=== PATIENT | female | born 1930 | race Two or more races ===

== ENCOUNTER 2016-03-18 08:52 | Inpatient (IN) | payer OTHER ==
[~2016-03-18] VITALS: Ht 165.1 cm; Wt 58.5 kg
[~2016-03-18 08:52] MED LIST: AMLO10TA2 PO; ASPI-407 PO; ASPITAB87 OR; ATOR40TA52 PO; BISA-51 PO; LIS20T PO; PANT1INJ3 PO; SENNTAB OR; [UNRECOGNIZED DRUG - CODE] OR
[2016-03-18] MEDS ORDERED: MORPHINE SULF INJ 2 MG/ML SYRINGE 1ML IV ONE ×2 (09:30→12:30)
[2016-03-18] MEDS ORDERED: ONDANSETRON HCL 4 MG/2 ML VIAL IV ONE (09:30)
[2016-03-18 10:17] LABS: Basophils # (auto) 0.1 uL; Basophils % (auto) 1.7 % (0.0-2.0); Eosinophils # (auto) 0.1 uL; Eosinophils % (auto) 1.2 % (0.0-7.0); Hematocrit 39.4 % (36.0-46.0); Hemoglobin 13.1 g/dL (12.2-16.2); Lymphocytes # (auto) 1.4 uL; Lymphocytes % (auto) 19.8 % (10.0-50.0); Mean Corpuscular Hemoglobin 30.3 pg (28.0-32.0); Mean Corpuscular Hgb Conc. 33.1 g/dL (32.0-36.0); Mean Corpuscular Volume 91.6 fL (80.0-100.0); Mean Platelet Volume 7.1 fL (7.4-10.4); Monocytes # (auto) 0.5 uL; Neutrophils # (auto) 4.7 uL; Neutrophils % (auto) 70.3 % (37.0-80.0); Platelet Count (auto) 289 10^3/uL (140-450); Red Cell Distribution Width 12.4 % (11.6-16.0); White Blood Cell 6.8 10^3/uL (4.4-10.8)
[2016-03-18 10:32] LABS: Albumin 3.3 g/dL (3.4-5.0); BUN/Creatinine Ratio 17.1; Bilirubin, Total 0.5 mg/dL (0.2-1.0); Calcium 8.6 mg/dL (8.5-10.1); Magnesium 2.5 mg/dL (1.6-2.6); Potassium 4.1 mmol/L (3.5-5.1); Total Protein 6.2 g/dL (6.4-8.2)
[2016-03-18 10:37] LABS: INR 1.03 (0.9-1.15); Partial Thromboplastin Time 25.4 sec (22.64-33.71); Prothrombin Time 10.6 sec (9.37-12.3)
[2016-03-18] MEDS ORDERED: IOHEXOL 350 MG/ML 100ML IJ ONE (12:34)
[2016-03-18] MEDS ORDERED: ACETAMINOPHEN 325 MG TAB PO PRN (14:30)
[2016-03-18] MEDS ORDERED: MORPHINE SULF INJ 2 MG/ML SYRINGE 1ML IV PRN ×2 (14:30)
[2016-03-18] MEDS ORDERED: PARoxetine 20 MG TAB PO ONE (14:30)
[2016-03-18] MEDS ORDERED: ONDANSETRON HCL 4 MG/2 ML VIAL IV PRN (14:30)
[2016-03-18] MEDS ORDERED: NITROGLYCERIN 0.4 MG SL TAB SL PRN ×2 (14:30)
[2016-03-18] MEDS ORDERED: LORazepam 0.5 MG TAB PO PRN (14:30)
[2016-03-18] MEDS ORDERED: cloNIDine HCL 0.1 MG TAB PO PRN (14:30)
[2016-03-18] MEDS ORDERED: ZOLPIDEM TARTRATE 5 MG TAB PO PRN (14:30)
[2016-03-18] MEDS ORDERED: DOCUSATE SOD 100 MG CAP PO ONE (14:45)
[2016-03-18] MEDS ORDERED: ASPirin 81 mg TAB PO ONE (14:45)
[2016-03-18] MEDS ORDERED: CARVEDILOL 3.125 MG TAB PO ONE (14:45)
[2016-03-18] MEDS ORDERED: LISINOPRIL 20 MG TAB PO ONE (14:45)
[2016-03-18] MEDS ORDERED: CLOPIDOGREL BISULFATE 75 MG TAB PO ONE (14:45)
[2016-03-18 15:25] LABS: Urine Bilirubin Negative (Negative); Urine Blood Negative /uL (Negative); Urine Color Colorless (Yellow); Urine Glucose Normal (Normal); Urine Ketone Negative (Negative); Urine Nitrite Negative (Negative); Urine RBC <1 /hpf (0 - 4); Urine Squamous Epithelial Cell FEW /hpf (<5); Urine Urobilinogen Normal (Negative)
[2016-03-18 15:32] LABS: B-Type Natriuretic Peptide 46.77 pg/mL (0-100)
[2016-03-18 15:46] LABS: Temperature: 22.7 C (20.0-25.0)
[2016-03-18] MEDS: BOOST PLUS 8 ounce PO SCH (18:04)
[2016-03-18 21:00] VITALS: BP 144/74
[2016-03-18] MEDS ORDERED: ATORVASTATIN 20 MG TAB PO SCH (22:00)
[2016-03-18] MEDS: CARVEDILOL 3.125 MG TAB PO SCH (22:35)
[2016-03-18] MEDS: LISINOPRIL 20 MG TAB PO SCH (22:36)
[2016-03-18] MEDS: SODIUM CHLOR 0.9% PF (SALINE LOCK) 10ML VIAL IV SCH (22:44)
[2016-03-18 22:54] VITALS: BP 144/74
[2016-03-19 01:09] LABS: Basophils # (auto) 0.1 uL; Eosinophils # (auto) 0.1 uL; Eosinophils % (auto) 0.9 % (0.0-7.0); Lymphocytes # (auto) 1.5 uL; Lymphocytes % (auto) 20.6 % (10.0-50.0); Mean Corpuscular Hgb Conc. 32.4 g/dL (32.0-36.0); Mean Corpuscular Volume 92.8 fL (80.0-100.0); Mean Platelet Volume 7.1 fL (7.4-10.4); Monocytes # (auto) 0.4 uL; Monocytes % (auto) 5.8 % (0.0-12.0); Neutrophils # (auto) 5.4 uL; Neutrophils % (auto) 71.7 % (37.0-80.0); Platelet Count (auto) 255 10^3/uL (140-450); Red Cell Distribution Width 12.6 % (11.6-16.0); White Blood Cell 7.5 10^3/uL (4.4-10.8)
[2016-03-19 01:28] LABS: Albumin 2.8 g/dL (3.4-5.0); BUN/Creatinine Ratio 17.1; Calcium 7.4 mg/dL (8.5-10.1); Potassium 4.5 mmol/L (3.5-5.1)
[2016-03-19 01:30] LABS: Bilirubin, Total 0.4 mg/dL (0.2-1.0)
[2016-03-19] MEDS ORDERED: HYDROcodone-ACET 5/325MG TAB PO PRN (02:00)
[2016-03-19 04:51] VITALS: BP 142/73
[2016-03-19 06:06] LABS: Thyroxine (T4) 7.6 ug/dL (4.5-12.0)
[2016-03-19] MEDS: SODIUM CHLOR 0.9% PF (SALINE LOCK) 10ML VIAL IV SCH (06:15)
[2016-03-19 06:46] LABS: Basophils # (auto) 0 uL; Basophils % (auto) 0.3 % (0.0-2.0); Eosinophils # (auto) 0 uL; Eosinophils % (auto) 0.6 % (0.0-7.0); Hemoglobin 12.2 g/dL (12.2-16.2); Lymphocytes # (auto) 1.5 uL; Lymphocytes % (auto) 19.2 % (10.0-50.0); Mean Corpuscular Hemoglobin 29.6 pg (28.0-32.0); Mean Corpuscular Volume 92.8 fL (80.0-100.0); Mean Platelet Volume 7.2 fL (7.4-10.4); Monocytes # (auto) 0.4 uL; Monocytes % (auto) 5.4 % (0.0-12.0); Neutrophils # (auto) 5.6 uL; Neutrophils % (auto) 74.5 % (37.0-80.0); Platelet Count (auto) 279 10^3/uL (140-450); Red Cell Distribution Width 13.8 % (11.6-16.0); White Blood Cell 7.6 10^3/uL (4.4-10.8)
[2016-03-19 07:13] LABS: Albumin 3.1 g/dL (3.4-5.0); Bilirubin, Total 0.4 mg/dL (0.2-1.0); Calcium 8.5 mg/dL (8.5-10.1); Magnesium 2.6 mg/dL (1.6-2.6); Potassium 4.5 mmol/L (3.5-5.1)
[2016-03-19] MEDS: BOOST PLUS 8 ounce PO SCH (08:00)
[2016-03-19 08:33] VITALS: BP 127/63
[2016-03-19] MEDS: LISINOPRIL 20 MG TAB PO SCH (09:34)
[2016-03-19] MEDS: CARVEDILOL 3.125 MG TAB PO SCH (09:34)
[2016-03-19] MEDS ORDERED: CLOPIDOGREL BISULFATE 75 MG TAB PO SCH (10:00)
[2016-03-19] MEDS ORDERED: PARoxetine 20 MG TAB PO SCH (10:00)
[2016-03-19] MEDS ORDERED: DOCUSATE SOD 100 MG CAP PO SCH (10:00)
[2016-03-19] MEDS ORDERED: ASPirin 81 mg TAB PO SCH (10:00)
[2016-03-19 11:50] VITALS: BP 102/56
[2016-03-19 12:07] VITALS: BP 102/56
== END 2016-03-19 13:15 | disposition home or self-care (01) | DRG 206 ==
LOC: EDUNIT# 08:52 → EDBD 08:52 → ER 08:52 → EDUNIT# 08:53 → TELE 08:53 → TELE-WESTW 20:12
PROVIDERS: ADMIT Internal Medicine; ATTEND Internal Medicine
DX: M94.0 Chondrocostal junction syndrome [Tietze] (principal); E44.1 Mild protein-calorie malnutrition; I12.9 Hypertensive chronic kidney disease with stage 1 through stage 4 chronic kidney disease, or unspecified chronic kidney disease; N18.3 Chronic kidney disease, stage 3 (moderate); E04.2 Nontoxic multinodular goiter; Z68.21 Body mass index [BMI] 21.0-21.9, adult; Z83.3 Family history of diabetes mellitus; Z82.49 Family history of ischemic heart disease and other diseases of the circulatory system; E88.09 Other disorders of plasma-protein metabolism, not elsewhere classified; I35.2 Nonrheumatic aortic (valve) stenosis with insufficiency
CPT/HCPCS: 36415; 71010; 71275; 76536; 80053; 80061; 81001; 82962; 83735; 83880; 84443; 84484; 85025; 85379; 85610; 85730; 87086; 93005; 93306; 96374; 96375; 96376; J2405

== ENCOUNTER 2017-06-28 08:33 | Emergency (ER) | payer OTHER ==
[~2017-06-28] VITALS: Ht 162.6 cm; Wt 57.2 kg
[~2017-06-28 08:33] MED LIST changes: +AMLO10TA2; +ATEN-60; +CLON0.1T; +SIMV-8
[2017-06-28 09:29] LABS: Basophils # (auto) 0.1 uL; Basophils % (auto) 0.6 % (0.0-2.0); Eosinophils # (auto) 0.1 uL; Eosinophils % (auto) 1.1 % (0.0-7.0); Hematocrit 37.7 % (36.0-46.0); Hemoglobin 12.7 g/dL (12.2-16.2); Lymphocytes # (auto) 1.8 uL; Lymphocytes % (auto) 20.2 % (10.0-50.0); Mean Corpuscular Hemoglobin 30.5 pg (28.0-32.0); Mean Corpuscular Hgb Conc. 33.6 g/dL (32.0-36.0); Mean Corpuscular Volume 90.8 fL (80.0-100.0); Monocytes # (auto) 0.6 uL; Monocytes % (auto) 6.7 % (0.0-12.0); Neutrophils # (auto) 6.4 uL; Neutrophils % (auto) 71.4 % (37.0-80.0); Platelet Count (auto) 361 10^3/uL (140-450); Red Blood Cells 4.15 10^6/uL (4.0-5.20); Red Cell Distribution Width 14.2 % (11.8-14.3); White Blood Cell 8.9 10^3/uL (4.4-10.8)
[2017-06-28 09:45] LABS: INR 0.92 (0.9-1.15); Partial Thromboplastin Time 24.8 sec (22.64-33.71)
[2017-06-28 09:47] LABS: Albumin 3.4 g/dL (3.4-5.0); BUN/Creatinine Ratio 19.2; Calcium 8.5 mg/dL (8.5-10.1); Potassium 4.6 mmol/L (3.5-5.1)
[2017-06-28 09:50] LABS: Bilirubin, Total 0.3 mg/dL (0.2-1.0); Total Protein 6.9 g/dL (6.4-8.2)
[2017-06-28 11:44] LABS: Urine Bacteria NONE SEEN /hpf (None Seen); Urine Blood Negative /uL (Negative); Urine Specific Gravity 1.008 (1.001-1.035); Urine WBC <1 /hpf (0 - 5)
[2017-06-28 12:48] VITALS: BP 176/87
== END 2017-06-28 13:56 | disposition home or self-care (01) ==
LOC: MERGE 08:33 → ER 08:33
DX: S00.83XA Contusion of other part of head, initial encounter (principal); M47.812 Spondylosis without myelopathy or radiculopathy, cervical region; E04.9 Nontoxic goiter, unspecified; W18.39XA Other fall on same level, initial encounter; Y93.89 Activity, other specified; Y99.8 Other external cause status; Y92.098 Other place in other non-institutional residence as the place of occurrence of the external cause
CPT/HCPCS: 36415; 70450; 71046; 72125; 80053; 81001; 85025; 85610; 85730; 93005

== ENCOUNTER 2017-08-19 06:24 | Inpatient (IN) | payer OTHER ==
[~2017-08-19] VITALS: Ht 170.2 cm; Wt 58.6 kg
[2017-08-19 07:44] LABS: Basophils # (auto) 0 uL; Basophils % (auto) 0.5 % (0.0-2.0); Eosinophils # (auto) 0.2 uL; Hemoglobin 11.8 g/dL (12.2-16.2); Lymphocytes # (auto) 1.7 uL; Lymphocytes % (auto) 20.4 % (10.0-50.0); Mean Corpuscular Hemoglobin 31.2 pg (28.0-32.0); Mean Corpuscular Hgb Conc. 33.8 g/dL (32.0-36.0); Mean Corpuscular Volume 92.2 fL (80.0-100.0); Monocytes # (auto) 0.6 uL; Monocytes % (auto) 7.6 % (0.0-12.0); Neutrophils # (auto) 5.7 uL; Neutrophils % (auto) 69.5 % (37.0-80.0); Platelet Count (auto) 322 10^3/uL (140-450); Red Cell Distribution Width 14.3 % (11.8-14.3); White Blood Cell 8.2 10^3/uL (4.4-10.8)
[2017-08-19 07:59] LABS: Anion Gap 9 (5-15); Calcium 8.4 mg/dL (8.5-10.1); Carbon Dioxide 24 mmol/L (21-32); Chloride 105 mmol/L (98-107); Glucose 92 mg/dL (74-106); Magnesium 2.5 mg/dL (1.6-2.6); Potassium 4.7 mmol/L (3.5-5.1); Sodium 138 mmol/L (136-145)
[2017-08-19 08:07] LABS: Alanine Aminotransferase 11 U/L (13-56); Alkaline Phosphatase 50 U/L (45-117); Aspartate Aminotransferase 7 U/L (15-37); BUN/Creatinine Ratio 17.3; Bilirubin, Total 0.3 mg/dL (0.2-1.0); Blood Urea Nitrogen 18 mg/dL (7-18); GFR African American 65 mL/min; GFR Non-African American 53 mL/min; Total Protein 6.3 g/dL (6.4-8.2)
[2017-08-19 08:22] LABS: INR 0.93 (0.9-1.15)
[2017-08-19] MEDS ORDERED: SODIUM CHLORIDE 0.9% 1,000 ML IV ONE (08:43)
[2017-08-19] MEDS ORDERED: MORPHINE SULFATE 8mg/ml INJ SDV IV PRN ×2 (08:45→12:45)
[2017-08-19] MEDS ORDERED: ONDANSETRON HCL 4 MG/2 ML VIAL IV ONE (08:45)
[2017-08-19] MEDS: amLODIPine BESYLATE 5 MG TAB PO SCH (10:00)
[2017-08-19 10:07] LABS: Urine Bacteria NONE SEEN /hpf (None Seen); Urine Blood Negative /uL (Negative); Urine Specific Gravity 1.008 (1.001-1.035); Urine WBC <1 /hpf (0 - 5)
[2017-08-19] MEDS: SODIUM CHLORIDE 0.9% 1,000 ML IV SCH (12:42)
[2017-08-19] MEDS ORDERED: BISACODYL 5 MG EC TAB PO SCH (12:45)
[2017-08-19] MEDS ORDERED: SENNOSIDES DOCUSATE SODIUM OR PRN (12:45)
[2017-08-19] MEDS ORDERED: NITROGLYCERIN 0.4 MG SL TAB SL PRN (12:45)
[2017-08-19] MEDS ORDERED: NITROGLYCERIN 0.2MG/HR TOPICAL PATCH TD ONE (13:00)
[2017-08-19] MEDS ORDERED: amLODIPine BESYLATE 5 MG TAB PO ONE (13:00)
[2017-08-19] MEDS ORDERED: DOCUSATE SOD OR PRN (13:00)
[2017-08-19] MEDS ORDERED: [UNRECOGNIZED DRUG - OTHER] OR PRN (13:00)
[2017-08-19] MEDS ORDERED: LABETALOL HCL 5 MG/ML ML 20ML VIAL IV PRN ×3 (16:00)
[2017-08-19] MEDS ORDERED: METOPROLOL TARTRATE 25 MG TAB PO ONE (16:00)
[2017-08-19] MEDS ORDERED: LISINOPRIL 20 MG TAB PO ONE (16:00)
[2017-08-19] MEDS ORDERED: LABETALOL HCL 5 MG/ML ML 20ML VIAL IV ONE (16:00)
[2017-08-19] MEDS ORDERED: cloNIDine HCL 0.1 MG TAB PO ONE (16:00)
[2017-08-19 20:30] VITALS: BP 119/64
[2017-08-19 22:00] VITALS: BP 119/64
[2017-08-19] MEDS ORDERED: ATORVASTATIN 20 MG TAB PO SCH (22:00)
[2017-08-19] MEDS: METOPROLOL TARTRATE 25 MG TAB PO SCH (22:56)
[2017-08-19] MEDS: cloNIDine HCL 0.1 MG TAB PO SCH (22:57)
[2017-08-20 05:00] VITALS: BP 98/55
[2017-08-20] MEDS: SODIUM CHLORIDE 0.9% 1,000 ML IV SCH (06:13)
[2017-08-20 09:00] VITALS: BP 85/47
[2017-08-20] MEDS: METOPROLOL TARTRATE 25 MG TAB PO SCH (09:02)
[2017-08-20] MEDS: cloNIDine HCL 0.1 MG TAB PO SCH (09:02)
[2017-08-20] MEDS: amLODIPine BESYLATE 5 MG TAB PO SCH (09:03)
[2017-08-20] MEDS ORDERED: LISINOPRIL 20 MG TAB PO SCH ×2 (10:00)
[2017-08-20] MEDS ORDERED: NITROGLYCERIN 0.2MG/HR TOPICAL PATCH TD SCH (10:00)
[2017-08-20] MEDS ORDERED: ENALAPRIL MALEATE 10 MG TAB PO SCH (10:00)
[2017-08-20] MEDS ORDERED: amLODIPine BESYLATE 5 MG TAB PO SCH (10:00)
== END 2017-08-20 15:15 | disposition home or self-care (01) | DRG 683 ==
LOC: EDBD 06:24 → ER 06:28 → TELE 06:29 → TELE-WESTW 20:23
PROVIDERS: ADMIT Internal Medicine; ATTEND Internal Medicine
DX: I12.9 Hypertensive chronic kidney disease with stage 1 through stage 4 chronic kidney disease, or unspecified chronic kidney disease (principal); E44.1 Mild protein-calorie malnutrition; E78.5 Hyperlipidemia, unspecified; K21.9 Gastro-esophageal reflux disease without esophagitis; M19.90 Unspecified osteoarthritis, unspecified site; F03.90 Unspecified dementia, unspecified severity, without behavioral disturbance, psychotic disturbance, mood disturbance, and anxiety; I25.10 Atherosclerotic heart disease of native coronary artery without angina pectoris; N18.3 Chronic kidney disease, stage 3 (moderate); I25.2 Old myocardial infarction; Z90.5 Acquired absence of kidney; Z90.710 Acquired absence of both cervix and uterus; Z79.82 Long term (current) use of aspirin; Z79.899 Other long term (current) drug therapy; Z85.528 Personal history of other malignant neoplasm of kidney; Z82.49 Family history of ischemic heart disease and other diseases of the circulatory system; Z83.3 Family history of diabetes mellitus; Z68.20 Body mass index [BMI] 20.0-20.9, adult
CPT/HCPCS: 36415; 71045; 80053; 81001; 82550; 83735; 83880; 84443; 84484; 85025; 85379; 85610; 85652; 85730; 93005; 94761; 96361; 96374; J2405

== ENCOUNTER 2017-11-07 17:32 | Emergency (ER) | payer OTHER ==
[~2017-11-07] VITALS: Ht 157.5 cm; Wt 58.3 kg
[~2017-11-07 17:32] MED LIST changes: -AMLO10TA2; -AMLO10TA2 PO; -ASPI-407 PO; +ASPI81CH43 PO; -CLON0.1T; -LIS20T PO; +LISI10TA6 PO; -SIMV-8
[2017-11-07] MEDS ORDERED: cloNIDine HCL 0.1 MG TAB ONE (18:37)
[2017-11-07] MEDS ORDERED: cloNIDine HCL 0.1 MG TAB PO ONE (18:45)
[2017-11-07] MEDS ORDERED: BACITRACIN-POLYMYXIN B TOPICAL OINT UD TOP ONE (21:45)
[2017-11-07] MEDS ORDERED: cefTRIAXone SOD 1,000 MG VL IM ONE (21:45)
[2017-11-07 22:00] VITALS: BP 142/71
[2017-11-07] MEDS ORDERED: STERILE WATER 10 ML ONE (22:00)
[2017-11-07 22:41] LABS: Basophils # (auto) 0 uL; Basophils % (auto) 0.6 % (0.0-2.0); Eosinophils # (auto) 0.2 uL; Hematocrit 32.9 % (36.0-46.0); Lymphocytes # (auto) 1.3 uL; Mean Corpuscular Hemoglobin 31.5 pg (28.0-32.0); Mean Corpuscular Hgb Conc. 33.5 g/dL (32.0-36.0); Mean Corpuscular Volume 94.1 fL (80.0-100.0); Monocytes # (auto) 0.7 uL; Monocytes % (auto) 7.7 % (0.0-12.0); Neutrophils # (auto) 6.5 uL; Neutrophils % (auto) 74.7 % (37.0-80.0); Nucleated Red Blood Cells % 0.1 %; Platelet Count (auto) 343 10^3/uL (140-450); Red Cell Distribution Width 13.5 % (11.8-14.3); White Blood Cell 8.6 10^3/uL (4.4-10.8)
[2017-11-07 22:57] LABS: Alanine Aminotransferase 11 U/L (13-56); Albumin 2.7 g/dL (3.4-5.0); Anion Gap 9 (5-15); Aspartate Aminotransferase 12 U/L (15-37); BUN/Creatinine Ratio 16.5; Blood Urea Nitrogen 18 mg/dL (7-18); Carbon Dioxide 25 mmol/L (21-32); Chloride 103 mmol/L (98-107); GFR African American 61 mL/min; GFR Non-African American 51 mL/min; Glucose 100 mg/dL (74-106); Magnesium 2.4 mg/dL (1.6-2.6); Potassium 4.4 mmol/L (3.5-5.1); Sodium 137 mmol/L (136-145)
[2017-11-07 23:02] LABS: Alkaline Phosphatase 61 U/L (45-117); Bilirubin, Total 0.2 mg/dL (0.2-1.0); Total Protein 6.3 g/dL (6.4-8.2)
== END 2017-11-07 22:49 | disposition home or self-care (01) ==
LOC: ER 17:34
DX: S41.112A Laceration without foreign body of left upper arm, initial encounter (principal); S43.492A Other sprain of left shoulder joint, initial encounter; I10 Essential (primary) hypertension; I25.2 Old myocardial infarction; E78.5 Hyperlipidemia, unspecified; Z86.73 Personal history of transient ischemic attack (TIA), and cerebral infarction without residual deficits; Z79.899 Other long term (current) drug therapy; W19.XXXA Unspecified fall, initial encounter; Y93.89 Activity, other specified; Y99.8 Other external cause status; Y92.89 Other specified places as the place of occurrence of the external cause
CPT/HCPCS: 12032; 36415; 70450; 72125; 73020; 80053; 83735; 83880; 84484; 85025; 93005; 96372; 99285; J0696